=== PATIENT | female | born 1965 | race Caucasian/White ===

== ENCOUNTER 2017-01-31 11:45 | Emergency (ER) | payer BC ==
[~2017-01-31] VITALS: Ht 154.9 cm; Wt 62.8 kg
[2017-01-31] MEDS ORDERED: VALIUM5 MG PO (13:49)
[2017-01-31 13:51] LABS: HEMATOCRIT 43.5 % (36.0-46.0); MCH 30.3 PG (29.0-34.0); MCV 89.1 FL (83-99); MEAN PLAT.VOLUME 10.5 uM^3 (9.5-12.4); PLATELET COUNT 227 K/uL (156-360); RBC DIS.WIDTH-CV 12.9 % (11.8-14.6); RBC DIS.WIDTH-SD 42.4 % (39-53); RED BLOOD COUNT 4.88 M/uL (3.80-5.20); WHITE BLOOD COUNT 6.6 K/uL (4.1-10.2)
[2017-01-31 14:03] LABS: CHLORIDE 103 mEq/L (99-109); POTASSIUM 4.2 mEq/L (3.7-5.4); SODIUM 140 mEq/L (136-147)
[2017-01-31 14:04] LABS: GLUCOSE 88 mg/dL (70-99)
[2017-01-31 14:06] LABS: ANION GAP 11 MEQ/L (2-14)
[2017-01-31 14:08] LABS: GFR ESTIMATE (CALCULATED) > 59 mL/min/
[2017-01-31 14:09] LABS: UREA NITROGEN (BUN) 8 mg/dL (9-23)
[2017-01-31 14:34] LABS: ERTH.SED.RATE 17 MM/HR (0-20)
[2017-01-31 15:38] VITALS: BP 135/66
== END 2017-01-31 15:48 | disposition home or self-care (01) ==
LOC: EME 11:45
PROVIDERS: Physician Assistant
DX: M62.838 Other muscle spasm (principal); M62.531 Muscle wasting and atrophy, not elsewhere classified, right forearm; M62.532 Muscle wasting and atrophy, not elsewhere classified, left forearm; G57.93 Unspecified mononeuropathy of bilateral lower limbs; G56.93 Unspecified mononeuropathy of bilateral upper limbs; Z88.0 Allergy status to penicillin; F17.200 Nicotine dependence, unspecified, uncomplicated
CPT/HCPCS: 80048; 82550; 82607; 84443; 85027; 85651; 99281; 99285

== ENCOUNTER → 2017-03-10 | Outpatient (CLI) | payer BC, OTHER ==
[~2017-03-10] VITALS: Ht 154.9 cm; Wt 63.0 kg
[~2017-03-10] MED LIST: ACTIVE-Q200 MG PO; B COMPLETE1 EACH PO; BILBERRY100 MG PO; CALCIUM 500 MG1 EACH PO; CARNITINE PO; COQ-10100 MG PO; GABA PO; LIPOIC ACID PO; MAGNESIUM OXID200 MG PO; MELATONIN10 M2 PO; NICOTINE LOZENGE2 M1 PO; TEMAZEPAM15 MG PO; TUMERIC PO; VALIUM5 MG PO; VITAMIN C1000 MG PO; VITAMIN D-32000 UNI2 PO; VITAMIN D33000 UNIT PO; [UNRECOGNIZED DRUG - OTHER] PO
== END | disposition home or self-care (01) ==
LOC: AMB 12:53
DX: K62.1 Rectal polyp (principal); K64.8 Other hemorrhoids; F17.210 Nicotine dependence, cigarettes, uncomplicated; Z80.0 Family history of malignant neoplasm of digestive organs; Z88.0 Allergy status to penicillin
CPT/HCPCS: 88305

== ENCOUNTER 2017-04-27 12:51 | Emergency (ER) | payer OTHER, BC ==
[~2017-04-27] VITALS: Ht 162.6 cm; Wt 65.0 kg
[2017-04-27] MEDS ORDERED: PERCOCET 5/31 TABLET PO (14:41)
[2017-04-27 19:15] VITALS: BP 130/67
== END 2017-04-27 19:26 | disposition home or self-care (01) ==
LOC: EME → EDBD 12:51 → EME 12:51
PROC: 3E0234Z Introduction of Serum, Toxoid and Vaccine into Muscle, Percutaneous Approach (ICD-10-PCS; principal; 2017-04-27)
PROC: 0HQ8XZZ Repair Buttock Skin, External Approach (ICD-10-PCS; principal; 2017-04-27)
PROC: 2W38X1Z Immobilization of Right Upper Extremity using Splint (ICD-10-PCS; principal; 2017-04-27)
DX: S42.294A Other nondisplaced fracture of upper end of right humerus, initial encounter for closed fracture (principal); S31.811A Laceration without foreign body of right buttock, initial encounter; S82.141A Displaced bicondylar fracture of right tibia, initial encounter for closed fracture; S82.831A Other fracture of upper and lower end of right fibula, initial encounter for closed fracture; S40.011A Contusion of right shoulder, initial encounter; S80.811A Abrasion, right lower leg, initial encounter; S50.311A Abrasion of right elbow, initial encounter; V22.4XXA Motorcycle driver injured in collision with two- or three-wheeled motor vehicle in traffic accident, initial encounter; Z23 Encounter for immunization; Z72.0 Tobacco use
CPT/HCPCS: 73030; 73564; 99281; 99285; J2270; J2405